=== PATIENT | female | born 1965 | race Caucasian/White ===

== ENCOUNTER 2022-04-10 21:54 | Emergency (ER) | payer OTHER ==
[2022-04-10] MEDS ORDERED: HYDROmorphone 1 MG/ML Syringe SUBCUT STA (22:11)
[2022-04-10] MEDS ORDERED: Take Home: Acetaminophen/HYDROcodone 325-5 MG, 2 Tab Pack PO ONE (22:59)
== END 2022-04-10 23:21 | disposition home or self-care (01) ==
LOC: CC.ED 21:54
DX: S22.32XA Fracture of one rib, left side, initial encounter for closed fracture (principal); W01.0XXA Fall on same level from slipping, tripping and stumbling without subsequent striking against object, initial encounter
CPT/HCPCS: 71101-LT; 96372; 99283; A9270-GY; J1170

== ENCOUNTER 2024-11-12 21:45 | Emergency (ER) | payer BC, OTHER ==
[2024-11-12] MEDS: Take Home: Acetaminophen/HYDROcodone 325-5 MG, 2 Tab Pack PO ONE (23:24)
== END 2024-11-12 23:38 | disposition home or self-care (01) ==
LOC: CC.ED 21:45
DX: S20.212A Contusion of left front wall of thorax, initial encounter (principal); M25.512 Pain in left shoulder; Z79.899 Other long term (current) drug therapy; W18.39XA Other fall on same level, initial encounter; Y93.89 Activity, other specified
CPT/HCPCS: 71100-LT; 73030-LT; 99284; A9270-GY